=== PATIENT | female | born 1970 | race Caucasian/White ===

== ENCOUNTER 2017-09-15 07:39 | Day surgery (SDC) | payer MEDICAID ==
[2017-09-13 15:14] LABS: BASOPHILS # (AUTO) 0.1 X10'3 (0-0.2); BASOPHILS % (AUTO) 0.6 % (0-1); EOSINOPHILS # (AUTO) 0.1 X10'3 (0-0.9); EOSINOPHILS % (AUTO) 1.1 % (0-6); LYMPHOCYTES # (AUTO) 3.3 X10'3 (1.1-4.8); LYMPHOCYTES % (AUTO) 24.8 % (21-51); MEAN CORPUSCULAR HEMOGLOBIN 29.2 PG (27.0-31.0); MEAN CORPUSCULAR VOLUME 85.8 FL (78-98); MEAN PLATELET VOLUME 10.1 FL (7.4-10.4); MONOCYTES # (AUTO) 0.6 X10'3 (0-0.9); MONOCYTES % (AUTO) 4.8 % (2-12); NEUTROPHILS # (AUTO) 9.1 X10'3 (1.8-7.7); NEUTROPHILS % (AUTO) 68.7 % (42-75); PRE OP HEMATOCRIT 43.5 % (35.0-45.0); PRE OP HEMOGLOBIN 14.8 g/dL (12.0-16.0); PRE OP PLATELET COUNT 372 X10'3 (140-440); RED BLOOD COUNT 5.07 X10'6 (4.20-5.60); RED CELL DISTRIBUTION WIDTH 13.1 % (11.5-14.5)
[2017-09-13 15:36] LABS: ALBUMIN 3.6 G/DL (3.4-5.0); ALBUMIN/GLOBULIN RATIO 0.9 (1.1-1.5); ALKALINE PHOSPHATASE 83 IU/L (46-116); BLOOD UREA NITROGEN 12 MG/DL (7-18); BUN/CREATININE RATIO 19.4 (6.6-38.0); CALCIUM 9.1 MG/DL (8.5-10.1); CHLORIDE 108 MMOL/L (99-107); CREATININE 0.62 MG/DL (0.40-0.90); PRE OP ALT 26 U/L (30-65); PRE OP ANION GAP 10 (8-16); PRE OP AST 20 U/L (10-37); PRE OP BILIRUB, TOTAL 0.2 MG/DL (0.0-1.0); PRE OP GLUCOSE 103 MG/DL (70-104); PRE OP POTASSIUM 3.8 MMOL/L (3.4-5.1); PRE OP SODIUM 143 MMOL/L (135-145); TOTAL PROTEIN 7.7 G/DL (6.4-8.2); eGFR > 90 ML/MIN
[2017-09-15] VITALS (13 sets, daily range): BP systolic 96–134; BP diastolic 54–77
[~2017-09-15] VITALS: Ht 154.9 cm; Wt 108.8 kg
[~2017-09-15 07:39] MED LIST: CYCL-394 PO; VENL75CA55 PO; ceFAZolin inj. 2,000 MG in dextrose 5%-water 100 ML IV ONE; famotidine 20mg tablet PO ONE; ringers solution, lacted 1,000 ML IV SCH
[2017-09-15] MEDS ORDERED: LIDOcaine 1% (10mg/ml) 2ml vial ONE (08:24)
[2017-09-15] MEDS ORDERED: ondansetron/PF 4mg/2ml inj IV PRN (10:00)
[2017-09-15] MEDS ORDERED: ringers solution, lacted 1,000 ML IV SCH (10:00)
[2017-09-15] MEDS ORDERED: labetalol 5mg/ml 20ml inj. IV PRN (10:00)
[2017-09-15] MEDS ORDERED: hydrALAZINE 20mg/ml inj. IV PRN (10:00)
[2017-09-15] MEDS ORDERED: cloNIDine hcl/PF 100mcg/ml inj ONE (10:05)
[2017-09-15] MEDS ORDERED: BUPIVAcaine 0.5% inj/PF 0 ML ONE (10:05)
[2017-09-15] MEDS ORDERED: fentaNYL/PF 50MCG/1 ML 2ML syringe ONE (10:08)
[2017-09-15] MEDS ORDERED: midazolam 2 mg/2 ml injection ONE (10:09)
[2017-09-15] MEDS ORDERED: LIDOcaine 2% (20mg/ml) 5ml vial ONE (10:10)
[2017-09-15] MEDS ORDERED: propofol inj 20 ML IV ONE (10:10)
[2017-09-15] MEDS ORDERED: succinylcholine 20mg/ml inj IV ONE (10:18)
[2017-09-15] MEDS ORDERED: BUPIVAcaine 0.5% inj/PF 30 ML ONE (10:27)
[2017-09-15] MEDS ORDERED: epiNEPHrine 1 mg/ml 30ml MDV ONE (10:27)
[2017-09-15] MEDS ORDERED: sevoflurane 250ml liquid IH ONE (10:46)
[2017-09-15] MEDS ORDERED: ondansetron/PF 4mg/2ml inj ONE (11:18)
[2017-09-15] MEDS ORDERED: acetaminophen 1,000mg/100ml IV 100 ML IV ONE (14:10)
[2017-09-15] MEDS ORDERED: ketorolac trometh. 30mg/ml inj. IV ONE (14:10)
== END 2017-09-15 15:15 | disposition home or self-care (01) ==
LOC: PAS 07:39
PROVIDERS: ATTEND Orthopaedic Surgery
DX: M75.41 Impingement syndrome of right shoulder (principal); M19.011 Primary osteoarthritis, right shoulder; F17.210 Nicotine dependence, cigarettes, uncomplicated; F32.9 Major depressive disorder, single episode, unspecified; F41.9 Anxiety disorder, unspecified; M41.9 Scoliosis, unspecified; E66.01 Morbid (severe) obesity due to excess calories; Z68.41 Body mass index [BMI] 40.0-44.9, adult
CPT/HCPCS: 29824; 36415; 80053; 85025; A4565; A6258; J0131; J0171; J0330; J0690; J0735; J1885; J2001; J2250; J2405; J2704; J3010; J3490; J7060; J7120; A7000